=== PATIENT | male | born 1955 | race Caucasian/White ===

== ENCOUNTER 2023-09-21 09:50 | Outpatient (CLI) | payer OTHER, SELFPAY ==
--- NOTE | 2023-09-21 09:57 | FL_ITS ---
WS: [id number] ESOPHAGRAM TECHNIQUE: Double contrast examination was performed with thin and thick barium. Upright and DOWD imag es were obtained. CLINICAL INFORMATION: DYSPHAGIA COMPARISON: None. FINDINGS: Prior postoperative changes cervical spine ACDF C5-C7 Swallowing: No aspiration or penetration. Esophagus: Mild esophageal dysmotility. No stricture or obstructing mass. Gastroesophageal reflux: Active reflux to the upper thoracic esophagus on the supine imaging. No sign ificant hiatal hernia. Fluoroscopy time: 3min [id number] IMPRESSION: 1. No evidence of aspiration or penetration. 2. Active reflux to the upper thoracic esophagus on the supine imaging. No significant hiatal hernia . 3. Mild esophageal dysmotility with slightly delayed emptying and tertiary contractions. No strictur e or obstructing mass. 4. Evidence of esophagitis and gastritis.
--- NOTE | 2023-09-21 09:57 | CTR_ITS ---
PROCEDURE INFORMATION: Exam: CT Neck With Contrast Exam date and time: 09/21/2023 10:13 AM Age: 68 years old Clinical indication: Dysphagia / difficulty swallowing; Prior surgery; Surgery date: 6+ months; Surgery type: Neck, left carotid TECHNIQUE: Imaging protocol: Computed tomography of the neck with contrast. Radiation optimization: All CT scans at this facility use at least one of these dose optimization techniques: automated exposure control; mA and/or kV adjustment per patient size (includes targeted exams where dose is matched to clinical indication); or iterative reconstruction. Contrast material: OMNI 350; Contrast volume: 95 ml; Contrast route: INTRAVENOUS (IV); REPORTING DATA: Count of CT and Cardiac NM exams in prior 12 months: This patient has received 0 known CTs and 0 known cardiac nuclear medicine studies in the 12 months prior to the current study. COMPARISON: No relevant prior studies available. RADIATION DOSE METRICS: Total DLP (mGy-cm): 254.8 FINDINGS: Pharynx: Unremarkable. No significant tonsillar enlargement. Larynx: Unremarkable. Epiglottis is normal. Prevertebral and retropharyngeal spaces: Unremarkable. Salivary glands: Normal. Glands are normal in size. Thyroid: Small left thyroid nodules. Lymph nodes: Unremarkable. No lymphadenopathy. Trachea: Visualized trachea is unremarkable. Lungs: Unremarkable as visualized. Bones/joints: Degenerative changes of the cervical spine. Anterior fusion with plate C5 through C7. Vasculature: There is blood flow only in the most proximal right common carotid artery, there is no blood flow distally. The right internal carotid artery is extremely small but is patent throughout its length. Mild dilatation of the proximal left internal carotid artery stent suggests prior endarterectomy. . Soft tissues: Unremarkable. No significant soft tissue swelling. 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 These findings appear chronic. COMMENTS: Consistent with the [employer]'s Incidental Findings Committee white paper (J Am Cyrus Radiol 2015): In patients aged 35 years and older with an incidental thyroid nodule equal to or greater than 1.[address], MRI or extrathyroidal US, further evaluation with dedicated thyroid US is recommended for patients with normal life expectancy and without comorbidities. For smaller nodules without suspicious features, no further evaluation or follow up is recommended.
[2023-09-21] MEDS: iohexol 350 mg/mL 500 mL Btl (per mL) IV (10:16)
== END 2023-09-21 09:51 | disposition home or self-care (01) ==
LOC: RAD 09:50
PROVIDERS: PCP Internal Medicine; Visit Provider Specialist
DX: R13.10 Dysphagia, unspecified (principal); I65.21 Occlusion and stenosis of right carotid artery; K21.00 Gastro-esophageal reflux disease with esophagitis, without bleeding; K22.4 Dyskinesia of esophagus; K29.70 Gastritis, unspecified, without bleeding; Z98.890 Other specified postprocedural states
CPT/HCPCS: 70491; 74220; Q9967

== ENCOUNTER 2023-11-14 10:26 | Outpatient (CLI) | payer OTHER, SELFPAY ==
--- NOTE | 2023-11-14 10:36 | FL_ITS ---
WS: [id number] Exam: FL barium swallow modifd [id number] Date/Time of Exam: 11/14/2023 10:46 AM Reason For Exam: Oral dysphagia Fluoroscopy time: 3min [id number] minutes # of spot films: Modified barium swallow was performed in conjunction with the speech therapy service. Oropharyngeal phase of swallowing was normal. The patient tolerated all consistencies of barium mixtu re foodstuffs without aspiration or penetration. The patient swallowed a barium pill without difficul ty. The barium tablet was retained at the GE junction but was propelled into the stomach with a singl e swallow of nectar consistency barium foodstuffs. IMPRESSION: 1. Unremarkable modified barium swallow test. No aspiration or penetration identified. A separate report with recommendations will follow from the speech therapy service.
== END 2023-11-14 10:27 | disposition home or self-care (01) ==
PROVIDERS: PCP Internal Medicine; Visit Provider Specialist
DX: R13.19 Other dysphagia (principal)
CPT/HCPCS: 74230; 92611